=== PATIENT | male | born 1970 | race Caucasian/White ===

== ENCOUNTER 2020-10-25 09:18 | Emergency (ER) | payer OTHER ==
[2020-10-25] MEDS ORDERED: CYCLOBENZAPRINE10 MG PO (12:04)
[2020-10-25] MEDS ORDERED: ETODOLAC500 MG PO (12:04)
== END 2020-10-25 12:14 | disposition home or self-care (01) ==
LOC: FER 09:18
DX: S16.1XXA Strain of muscle, fascia and tendon at neck level, initial encounter (principal); S80.212A Abrasion, left knee, initial encounter; S80.211A Abrasion, right knee, initial encounter; R51.9 Headache, unspecified; Z88.6 Allergy status to analgesic agent; V43.52XA Car driver injured in collision with other type car in traffic accident, initial encounter; Y92.410 Unspecified street and highway as the place of occurrence of the external cause
CPT/HCPCS: 72125